=== PATIENT | female | born 1955 | race African-American/Black ===

== ENCOUNTER 2019-11-04 11:47 | Emergency (ER) | payer SELFPAY ==
[~2019-11-04] VITALS: Ht 167.6 cm; Wt 113.0 kg
[2019-11-04] MEDS ORDERED: ASPIRIN 325 MG TABLET PO ONE (12:30)
--- NOTE | 2019-11-04 12:45 | PHYS DOC ---
Past Medical History Past Medical History: CAD, High Cholesterol, [place] Past Surgical History: No Surgical History Smoking Status: Former Smoker Alcohol Use: Occasionally Drug Use: None Adult General Chief Complaint Chief Complaint: SHORTNESS OF BREATH HPI HPI Patient is a 64 year old female who presents to the with a multiple day history of shortness of breath and chest discomfort. She she describes her shortness of breath as an anxiety-like feeling with rapid heartbeat. She states that it comes and goes randomly. She has not identified any specific trigger, but states that it is more noticeable/worse with laying down on her side and stomach. She denies any chest pain, dizziness, lower extremity swelling, or nausea/vomiting. She does have a history of [place] approximately 10 years prior with 3 stents placed. Review of Systems Review of Systems Constitutional: Denies fever or chills Respiratory: Denies cough, admits shortness of breath Cardiovascular: Reports chest discomfort and palpitations; denies chest pain GI: Denies abdominal pain, nausea, or vomiting Neurologic: Denies headache, focal weakness or sensory changes Complete systems were reviewed and found to be within normal limits, except as documented in this note. Family History Family History Father with diabetes and chronic kidney disease, son from [place] at 37, daughter with diabetes Current Medications Current Medications Current Medications Medications (Trade) Dose Ordered Sig/Micah Start Time Stop Time Status Last Admin Dose Admin Aspirin (Kaylynn Aspirin) 325 mg 1X ONCE 11/04/19 12:30 11/04/19 12:34 DC 11/04/19 13:04 325 MG Allergies Allergies Allergies Coded Allergies Type Severity Reaction Last Updated Verified No Known Drug Allergies 11/04/19 No Physical Exam Physical Exam Constitutional: Well developed, well nourished, no acute distress, non-toxic appearance HENT: Normocephalic, atraumatic, oropharynx moist Eyes: EOMI, conjunctiva normal, no discharge Cardiovascular: Heart rate normal, irregular rhythm Lungs & Thorax: Bilateral breath sounds clear to auscultation, no wheezing Abdomen: Soft, no tenderness Skin: Warm, dry, no erythema, no rash Extremities: No tenderness, ROM intact, no edema Neurologic: Alert and oriented, normal motor function, normal sensory function, no focal deficits noted Psychologic: Affect anxious, judgment normal Current Patient Data Vital Signs Vital Signs Date Time Temp Pulse Resp B/P (MAP) Pulse Ox O2 Delivery O2 Flow Rate FiO2 11/04/19 14:58 60 18 117/72 (87) 100 Room Air 11/04/19 12:24 97.8 97.8 Lab Values Laboratory Tests Test 11/04/19 13:02 White Blood Count 3.5 x10^3/uL (4.0-11.0) L Red Blood Count 4.41 x10^6/uL (3.50-5.40) Hemoglobin 12.3 g/dL (12.0-15.5) Hematocrit 38.0 % (36.0-47.0) Mean Corpuscular Volume 86 fL (79-100) Mean Corpuscular Hemoglobin 28 pg (25-35) Mean Corpuscular Hemoglobin Concent 33 g/dL (31-37) Red Cell Distribution Width 14.2 % (11.5-14.5) Platelet Count 244 x10^3/uL (140-400) Neutrophils (%) (Auto) 38 % (31-73) Lymphocytes (%) (Auto) 45 % (24-48) Monocytes (%) (Auto) 14 % (0-9) H Eosinophils (%) (Auto) 3 % (0-3) Basophils (%) (Auto) 0 % (0-3) Neutrophils # (Auto) 1.3 x10^3/uL (1.8-7.7) L Lymphocytes # (Auto) 1.6 x10^3/uL (1.0-4.8) Monocytes # (Auto) 0.5 x10^3/uL (0.0-1.1) Eosinophils # (Auto) 0.1 x10^3/uL (0.0-0.7) Basophils # (Auto) 0.0 x10^3/uL (0.0-0.2) Prothrombin Time 13.4 SEC (11.7-14.0) Prothrombin Time INR 1.1 (0.8-1.1) Activated Partial Thromboplast Time 24 SEC (24-38) Sodium Level 138 mmol/L (136-145) Potassium Level 3.6 mmol/L (3.5-5.1) Chloride Level 101 mmol/L (98-107) Carbon Dioxide Level 30 mmol/L (21-32) Anion Gap 7 (6-14) Blood Urea Nitrogen 14 mg/dL (7-20) Creatinine 0.9 mg/dL (0.6-1.0) Estimated GFR (Cockcroft-Gault) 76.5 BUN/Creatinine Ratio 16 (6-20) Glucose Level 83 mg/dL (70-99) Calcium Level 9.7 mg/dL (8.5-10.1) Magnesium Level 2.0 mg/dL (1.8-2.4) Total Bilirubin 0.4 mg/dL (0.2-1.0) Aspartate Amino Transferase (AST) 16 U/L (15-37) Alanine Aminotransferase (ALT) 15 U/L (14-59) Alkaline Phosphatase 73 U/L (46-116) Creatine Kinase 177 U/L (26-192) Creatine Kinase MB (Mass) 1.1 ng/mL (0.0-3.6) Creatine Kinase MB Relative Index 0.6 % (0-4) Troponin I Quantitative < 0.017 ng/mL (0.000-0.055) GF-Ngt-X-Type Natriuretic Peptide 161 pg/mL (0-124) H Total Protein 7.9 g/dL (6.4-8.2) Albumin 3.6 g/dL (3.4-5.0) Albumin/Globulin Ratio 0.8 (1.0-1.7) L Lipase 50 U/L (73-393) L Laboratory Tests 11/04/19 13:02 Laboratory Tests 11/04/19 13:02 EKG EKG @1236 NSR at 64bpm, NO ST elevation, baseline artifact noted, occasional PAC Radiology/Procedures Radiology/Procedures PROCEDURE: CHEST PA & LATERAL Chest, PA and Lateral: Technique: PA and lateral views of the chest were obtained. History: Shortness of breath. Comparison: 02/25/2010. Findings: The cardiomediastinal silhouette grossly appears unremarkable. Small granuloma identified in the right lobe of the lung similar to prior exam. Moderate degenerative changes thoracic spine. IMPRESSION: 1. No acute cardiopulmonary findings. Electronically signed by: Jhonatan Levy MD (11/04/2019 12:52 PM) [id number] Course & Med Decision Making Course & Med Decision Making Pertinent Labs and Imaging studies reviewed. (See chart for details) 64-year-old female presents to ED with a multiple day history of shortness of breath and chest discomfort. She states that the shortness of breath/chest discomfort occurs together randomly. She has not identified a specific trigger but states that laying on her stomach and side makes it worse/more noticeable. She denies pleuritic chest pain, nausea, vomiting, diaphoresis, or lower extremity swelling. She does have history of [place] 10 years prior with 3 stents In the ED she is worked up for cardiac and pulmonary causes of shortness of mel ath and chest discomfort. An EKG was ordered and showed normal sinus rhythm with the occasional PAC, A chest x-ray was ordered and showed no acute cardiopulmonary processes, Appropriate labs were ordered and showed a negative troponin level, a slightly elevated BNP. HEART score 3. 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 Patient stable for discharge with outpatient follow-up with PCP/Cardiology/Podiatry. Podiatry referral provided. Discussed findings and plan with patient, who acknowledges understanding and agreement. Dragon Disclaimer Dragon Disclaimer This electronic medical record was generated, in whole or in part, using a voice recognition dictation system. Departure Departure Impression: Primary Impression: Palpitations Additional Impression: Foot mass Disposition: HOME, SELF-CARE Condition: STABLE Referrals: NO PCP (PCP) SIOBHAN RUANO DPM, DONALD J MD Patient Instructions: Palpitations, [id number] The HEART Score for CP Pts HEART Score for Chest Pain: HEART Score for Chest Pain Response (Comments) Value History Slighlty/Non-Suspicious 0 ECG Normal 0 Age >45 - < 65 1 Risk Factors >3 Risk Factors or Hx CAD 2 Troponin < Normal Limit 0 Total 3 Risk Factors: Risk Factors: DM, Current or recent (<one month) smoker, HTN, HLP, family history of CAD, obesity. Risk Scores: Score 0 - 3: 2.5% MACE over next 6 weeks - Discharge Home Score 4 - 6: 20.3% MACE over next 6 weeks - Admit for Clinical Observation Score 7 - 10: 72.7% MACE over next 6 weeks - Early Invasive Strategies Problem Qualifiers Additional Impression: Foot mass Laterality: bilateral Qualified Codes: R22.43 - Localized swelling, mass and lump, lower limb, bilateral OBINNA LEDESMA DO Nov 04, 2019 12:45
--- NOTE | 2019-11-04 12:55 | RAD ---
Chest, PA and Lateral: Technique: PA and lateral views of the chest were obtained. History: Shortness of breath. Comparison: 02/25/2010. Findings: The cardiomediastinal silhouette grossly appears unremarkable. Small granuloma identified in the right lobe of the lung similar to prior exam. Moderate degenerative changes thoracic spine. IMPRESSION: 1. No acute cardiopulmonary findings. Electronically signed by: Jhonatan Levy MD (11/04/2019 12:52 PM) [id number]
[2019-11-04 13:18] LABS: BASO % 0 % (0-3); EOS # 0.1 x10^3/uL (0.0-0.7); EOS % 3 % (0-3); HEMOGLOBIN 12.3 g/dL (12.0-15.5); LYMPH # 1.6 x10^3/uL (1.0-4.8); LYMPH % 45 % (24-48); MEAN CORPUSCULAR HEMOGLOBIN 28 pg (25-35); MEAN CORPUSCULAR HGB CONC 33 g/dL (31-37); MEAN CORPUSCULAR VOLUME 86 fL (79-100); MONO # 0.5 x10^3/uL (0.0-1.1); MONO % 14 % (0-9); NEUT # 1.3 x10^3/uL (1.8-7.7); NEUT % 38 % (31-73); PLATELET COUNT 244 x10^3/uL (140-400); RED BLOOD COUNT 4.41 x10^6/uL (3.50-5.40); RED CELL DISTRIBUTION WIDTH 14.2 % (11.5-14.5); WHITE BLOOD COUNT 3.5 x10^3/uL (4.0-11.0)
--- NOTE | 2019-11-04 13:20 | EKG ---
[facility] [address] [place] [address] Test Date: 2019-11-04 Test Time: 12:36:40 Pat Name: RADHA PHIPPS Department: Room: Gender: F Apartment Leasing Manager: : [id number] Requested By: OBINNA LEDESMA Order Number: [id number] Reading MD: Measurements Intervals [place] Rate: 64 P: 78 DE: 176 QRS: 6 QRSD: 88 T: 41 QT: 410 QTc: 427 Interpretive Statements SINUS RHYTHM COMPLEX(ES) WITH ABERRANT INTRAVENTRICULAR CONDUCTION ATRIAL PREMATURE COMPLEX(ES) LEFT ATRIAL ABNORMALITY T ABNORMALITY IN HIGH LATERAL LEADS ABNORMAL ECG RI6.01 No previous ECG available for comparison
[2019-11-04 13:30] LABS: PROTHROMBIN TIME PATIENT 13.4 SEC (11.7-14.0)
[2019-11-04 13:32] LABS: CALCIUM 9.7 mg/dL (8.5-10.1); CREATININE 0.9 mg/dL (0.6-1.0); GFR 76.5; POTASSIUM 3.6 mmol/L (3.5-5.1)
[2019-11-04 13:38] LABS: ALBUMIN 3.6 g/dL (3.4-5.0); ALBUMIN/GLOBULIN RATIO 0.8 (1.0-1.7); TOTAL BILIRUBIN 0.4 mg/dL (0.2-1.0); TOTAL PROTEIN 7.9 g/dL (6.4-8.2)
[2019-11-04 14:58] VITALS: BP 117/72
== END 2019-11-04 15:14 | disposition home or self-care (01) ==
LOC: ER 11:47
DX: R00.2 Palpitations (principal); R22.41 Localized swelling, mass and lump, right lower limb; R06.02 Shortness of breath; R00.0 Tachycardia, unspecified; F41.8 Other specified anxiety disorders; E78.00 Pure hypercholesterolemia, unspecified; I25.10 Atherosclerotic heart disease of native coronary artery without angina pectoris; I25.2 Old myocardial infarction; F17.200 Nicotine dependence, unspecified, uncomplicated; Z79.82 Long term (current) use of aspirin
CPT/HCPCS: 36415; 71046; 80053; 82553; 83690; 83735; 83880; 84484; 85025; 85610; 85730; 93005; 99285